=== PATIENT | female | born 1990 | race Caucasian/White ===

== ENCOUNTER 2021-04-21 12:22 | Emergency (ER) | payer OTHER, SELFPAY ==
[2021-04-21 12:37] VITALS: BP 121/71; PULSE 102; RESP 16; TEMP 36.9; O2SAT 98
--- NOTE | 2021-04-21 13:41 | ED.URI ---
HPI - URI/Sore Throat General Chief Complaint: Upper Respiratory Infection Stated Complaint: congestion fatigue and light headed Time Seen by Provider: 04/21/21 13:41 Source: patient, RN notes reviewed and old records reviewed Mode of arrival: ambulatory Limitations: no limitations History of Present Illness HPI Narrative: 30-year-old female who presents to [facility] with complaints of runny nose, nasal congestion, sneezing, sinus pressure, headache, sore throat since yesterday. She is 27 weeks has not taken anything [id number] for her symptoms is concerned that she may have Covid has not had Covid or flu vaccines. Patient is afebrile. MD elicited complaint: sore throat, rhinorrhea, nasal congestion, sinus pain and other (headache) Related Data Home Medications Medication Instructions Recorded Confirmed vit no.[id number] 1 tablet PO DAILY 04/21/21 04/21/21 [Classic ] Allergies Allergy/AdvReac Type Severity Reaction Status Date / Time No Known Allergies Allergy Unverified 04/21/21 13:25 Review of Systems Review of Systems: CONSTITUTIONAL: Denies fever, chills, or sweats. EYES: Denies visual changes, redness, or discharge. ENT: Positive rhinorrhea, congestion, sore throat, no otalgia. CARDIOVASCULAR: Denies chest pain, palpitations, or edema. RESPIRATORY: Denies cough or dyspnea. GASTROINTESTINAL: Denies abdominal pain, nausea, vomiting, or diarrhea. GENITOURINARY: Denies dysuria or hematuria. SKIN: Denies rash or itching. MUSCULOSKELETAL: Denies back pain, joint pain, or myalgia. NEUROLOGIC: Positive for headache,no numbness, or weakness. PSYCHIATRIC: Positive anxiety or depression. All systems reviewed & are unremarkable except as noted in HPI and below PMFSH Past Medical History Medical History (Updated 04/21/21 @ 13:54 by Jessica Lynne NP) Anxiety and depression Social History Social History (Updated 04/21/21 @ 22:56 by Jessica Lynne NP) Smoking status: Current every day smoker Tobacco type: cigarettes Alcohol intake: former Alcohol use details: is presently Substance use type: does not use Living arrangements: with family Gender identity (if verbalized by the patient): Female Exam Narrative: GENERAL: Well-appearing, well-nourished, and in no acute distress. HEAD: Normocephalic, atraumatic. EYES: PERRLA and EOMI. ENT: Nares patent, clear rhinorrhea no epistaxis. Mucous membranes moist.TM's normal with good light reflex, throat with mild erythema, no lesions or exudates, no tonsil swelling, NECK: Supple.no lymphadenopathy CHEST: Clear to auscultation. No respiratory distress.SAO2 98% on room air no cough noted. HEART: Regular rate and rhythm. No murmur heard. Normal peripheral pulses. ABDOMEN: Soft, nontender, nondistended, normal active bowel sounds. EXTREMITIES: Normal range of motion. No edema. SKIN: Warm, dry, no rash. NEURO: No focal deficits. Alert and oriented x3. Course Course Level of Care: Express Care Visit Vital Signs Vital signs: Vital Signs Temperature 36.9 C 04/21/21 12:37 Pulse Rate 102 H 04/21/21 12:37 Respiratory Rate 16 04/21/21 12:37 Blood Pressure 121/71 04/21/21 12:37 Pulse Oximetry 98 04/21/21 12:37 Temperature 36.9 C 04/21/21 12:37 Pulse Rate 102 H 04/21/21 12:37 Respiratory Rate 16 04/21/21 12:37 Blood Pressure 121/71 04/21/21 12:37 Pulse Oximetry 98 04/21/21 12:37 MDM - URI/Sore Throat Differential Diagnosis Differential diagnosis: Likely upper respiratory infection, sinusitis, viral infection, influenza and other (COVID screening) Medical Records Attestation: I reviewed the patient's medical records. Lab Data Attestation: I reviewed the patient's lab results. Lab results narrative: Strep screen negative, influenza A negative influenza B negative PCR Covid pending Labs: Lab Results 04/21/21 Range/Units 13:17 SARS-CoV-2 RNA (RT-PCR) Pending
[2021-04-22 16:39] LABS: SARS-CoV-2 RNA PCR Negative
== END 2021-04-21 14:00 | disposition home or self-care (01) ==
PROVIDERS: Emergency Provider Registered Nurse; PCP Physician Assistant
DX: O99.512 Diseases of the respiratory system complicating pregnancy, second trimester (principal); Z3A.27 27 weeks gestation of pregnancy; J06.9 Acute upper respiratory infection, unspecified; Z20.822 Contact with and (suspected) exposure to COVID-19; Z87.891 Personal history of nicotine dependence
CPT/HCPCS: 87081; 87804; 87880; 99203; C9803; G0463; U0003; U0005

== ENCOUNTER 2021-07-01 14:24 | Outpatient (RCR) | payer OTHER, SELFPAY ==
--- NOTE | ~2021-07-01 | US_ITS ---
EXAMINATION: US OB BPP wo non-stress DATE: 07/01/2021 15:52 INDICATION: tachycardia. TECHNIQUE: Real-time ultrasound of the pelvis was performed. COMPARISON: None. FINDINGS: There is a single living fetus in vertex presentation. The placenta is fundal. heart rate is 1 65 beats per minute (bpm). Biophysical profile performed by the technologist: breathing (30 sec sustained breathing in 30 minutes): 2 out of 2 movement (3 gross body movements in 30 minutes: 2 out of 2 tone (one episode of moyxgkp-perfpvnhv-jkscuci limb movement): 2 out of 2 Amniotic fluid pocket (2 cm): 2 out of 2 Total score: 8 out of 8 IMPRESSION: 1. Single living fetus in vertex presentation.] 2. Normal placenta. 3. Biophysical profile 8 out of 8. 4. RAYRAY 07/18/2021. Reviewed, dictated and finalized at location K.
[2021-07-01 16:03] VITALS: BP 104/69; PULSE 95
== END 2021-08-29 10:32 | disposition home or self-care (01) ==
LOC: ANHOBOP 14:24
PROVIDERS: PCP Physician Assistant; Visit Provider Advanced Practice Midwife
DX: O36.8330 Maternal care for abnormalities of the fetal heart rate or rhythm, third trimester, not applicable or unspecified (principal); Z3A.37 37 weeks gestation of pregnancy
CPT/HCPCS: 59025; 76819

== ENCOUNTER 2021-07-18 02:41 | Inpatient (IN) | payer OTHER, SELFPAY ==
[2021-07-18] VITALS (141 sets, daily range): BP systolic 61–152; BP diastolic 17–128; PULSE 60–236; RESP 13–18; TEMP 36.2–37.2; O2SAT 93–100; BMI 37.8
[2021-07-18 05:44] LABS: Basophils Absolute Auto 0.1 K/mm3 (0.0-0.1); Basophils Percent Auto 0.4 % (0.2-1.2); Hematocrit 36.9 % (37.0-47.0); Immature Granulocyte Percent A 0.6 % (0-0.5); Lymphocytes Absolute Auto 2.43 K/mm3 (0.9-3.2); Lymphocytes Percent Auto 15.2 % (18.3-44.2); Mean Corpuscular HGB Conc 32.5 g/dl (32-36); Mean Corpuscular Hemoglobin 29.8 pg (26-34); Mean Corpuscular Volume 91.6 fl (80-100); Mean Platelet Volume 11.8 fl (7.4-10.4); Monocytes Absolute Auto 1.2 K/mm3 (0.1-0.6); Monocytes Percent Auto 7.8 % (2.6-8.5); Neutrophils Absolute Auto 12.2 K/mm3 (1.3-6.7); Platelet Count Result 272 k/mm3 (150-375); Red Blood Count 4.03 M/mm3 (4.2-5.4); Red Cell Distribution Width 13.4 % (11.5-14.5)
[2021-07-18] MEDS: LACTATED RINGERS 1,000 ML 125 ML IV CONT ×2 (05:52→13:06)
--- NOTE | 2021-07-18 06:05 | WPDANESEPP ---
Anes - Eval Pre Procedure Procedure: labor epidural Date/Time: 07/18/21 06:05 Surgeon: oliver Pre Op Diagnosis: contractions Patient Data Age: 31 Gender: F Height: 1.73 m Weight: 113 kg Last Vital Signs Temp 36.2 C L 07/18/21 03:59 Pulse 81 07/18/21 06:01 BP 116/69 07/18/21 06:01 O2 Del Method Room Air 07/18/21 05:27 Allergies Allergy/AdvReac Type Severity Reaction Status Date / Time No Known Allergies Allergy Unverified 04/21/21 13:25 Home Medications Medication Instructions Recorded Confirmed Type vits no.126-ferrous fum 1 tablet PO DAILY 04/21/21 04/21/21 History 28 mg iron-folic acid 800 mcg tablet (Classic ) Laboratory Tests 07/18/21 07/18/21 05:38 05:38 WBC 16.0 K/mm3 H K/mm3 (4.5-10.0) RBC 4.03 M/mm3 L M/mm3 (4.2-5.4) Hgb 12.0 g/dL g/dL (12.0-15.0) Hct 36.9 % L % (37.0-47.0) MCV 91.6 fl fl (80-100) MCH 29.8 pg pg (26-34) MCHC 32.5 g/dl g/dl (32-36) RDW 13.4 % % (11.5-14.5) Plt Count 272 k/mm3 k/mm3 (150-375) MPV 11.8 fl H fl (7.4-10.4) Immature Gran % (Auto) 0.6 % H % (0-0.5) Neut % (Auto) 76.0 % H % (45.5-73.1) Lymph % (Auto) 15.2 % L % (18.3-44.2) [place] % (Auto) 7.8 % % (2.6-8.5) Eos % (Auto) 0.0 % % (0-4.4) Baso % (Auto) 0.4 % % (0.2-1.2) Lymph # (Auto) 2.43 K/mm3 K/mm3 (0.9-3.2) [place] # (Auto) 1.2 K/mm3 H K/mm3 (0.1-0.6) Eos # (Auto) 0.0 K/mm3 K/mm3 (0-0.3) Baso # (Auto) 0.1 K/mm3 K/mm3 (0.0-0.1) Abs Immat Gran (auto) 0.10 K/mm3 H K/mm3 (0.00-0.031) Absolute Neuts (auto) 12.2 K/mm3 H K/mm3 (1.3-6.7) Absolute Nucleated RBC 0.0 K/mm3 K/mm3 (0.0-0.012) Nucleated RBC % 0.0 % % (0.0-0.2) RPR Pending Patient hx anesthesia problems: none Family hx anesthesia problems: none Results Review: All pre-operative results and documents have been reviewed as part of the pre-operative evaluation. [facility] Past Medical History Medical History (Updated 04/22/21 @ 00:00 by Marlene Lewis) Anxiety and depression Family History Family History (Updated 07/08/21 @ 16:04 by Fabricio Holt RN) Father Cataract Asthma Emphysema lung Chronic obstructive pulmonary disease Diabetes mellitus Mother Edward's disease Cataract Hypertension Grandparent Acute myocardial infarction Grandparent Cancer Social History Social History (Updated 04/21/21 @ 22:56 by Jessica Lynne NP) Years smoked: 10 Smoking status: Current every day smoker Tobacco type: cigarettes Second hand tobacco smoke exposure: Yes Alcohol intake: former Alcohol use details: is presently Substance use: never Substance use type: does not use Gender identity (if verbalized by the patient): Female Spiritual care concerns: No Exam Day of Procedure 07/18/21 06:05
--- NOTE | 2021-07-18 13:16 | PM.IMHP ---
H&P: [facility] History of Present Illness Date/Time: 07/18/21 13:16 Chief Complaint: This patient is a 32-year-old 1 at 39 weeks gestation who presented in labor. She had agreed to delivery. She has a very large baby. She has a possibly macrosomic baby with a head in the 99th percentile and she has very severe anxiety. She denies any vaginal bleeding. Reports good movement. She denies any chest pain or shortness of breath. She understands that injuries may occur during surgery that result in hospitalization, more surgery, and severe illness. She understands risk of hemorrhage and infection. She has completed the informed consent process is ready to proceed with delivery. Review of Systems Review of Systems: All systems reviewed & are unremarkable except as noted in HPI and below Constitutional: Constitutional: Denies chills, Denies fatigue, Denies fever(s) and Denies weakness Eyes: Eyes: Denies blurry vision, Denies change in vision, Denies loss of peripheral vision, Denies loss of vision, Denies other visual disturbances and Denies eye pain ENT: Denies vertigo, Denies dizziness, Denies hearing loss, Denies mouth pain, Denies nasal obstruction, Denies neck mass and Denies neck pain Cardiovascular: Cardiovascular: Denies chest pain, Denies diaphoresis, Denies syncope, Denies leg edema and Denies dyspnea Respiratory: Respiratory: Denies chest congestion, Denies cough, Denies hemoptysis, Denies dyspnea and Denies wheezing Gastrointestinal: Gastrointestinal: Denies abdominal pain, Denies constipation, Denies diarrhea, Denies nausea and Denies vomiting Genitourinary: Genitourinary: Denies hematuria, Denies change in libido, Denies nocturia, Denies genital lesions, Denies flank pain and Denies urinary urgency Musculoskeletal: Musculoskeletal: Denies abnormal gait, Denies back pain, Denies myalgias, Denies arthralgias, Denies joint swelling, Denies muscle weakness and Denies neck pain Integumentary/Breasts: Skin/Breast: Denies swelling, Denies breast pain, Denies breast mass, Denies dry skin, Denies nipple discharge, Denies unusual bruising and Denies jaundice Neurologic: Denies Neuro-related abnormal movements, Denies Abnormal speech present, Denies abnormal gait, Denies behavioral changes, Denies confusion, Denies vertigo, Denies dizziness, Denies syncope, Denies loss of vision, Denies memory loss, Denies convulsions and Denies weakness Psychiatric: Psychiatric: Denies abnormal sleep pattern, Denies behavioral changes, Denies change in libido, Denies confusion, Denies depression, Denies anhedonia and Denies memory loss Endocrine: Endocrine: Reports no additional endocrine complaints, Denies change in libido and Denies fatigue Hematologic/Lymphatic: Hematologic/Lymphatic: Reports no additional hematologic/lymphatic complaints Allergic/Immunologic: Allergic/Immunologic: Reports no additional allergic/immunologic complaints and Denies wheezing PMFSH Past Medical History Medical History (Updated 07/18/21 @ 13:23 by Sheldon Morales MD) Anxiety and depression Family History Family History (Updated 07/08/21 @ 16:04 by Fabricio Holt RN) Father Cataract Asthma Emphysema lung Chronic obstructive pulmonary disease Diabetes mellitus Mother Edward's disease Cataract Hypertension Grandparent Acute myocardial infarction Grandparent Cancer Social History Social History (Updated 04/21/21 @ 22:56 by Jessica Lynne NP) Years smoked: 10 Smoking status: Current every day smoker Tobacco type: cigarettes Second hand tobacco smoke exposure: Yes Alcohol intake: former Alcohol use details: is presently Substance use: never Substance use type: does not use Gender identity (if verbalized by the patient): Female Spiritual care concerns: No Meds Home Medications and Allergies Home Medications Medication Instructions Recorded Confirmed Type vits no.
--- NOTE | 2021-07-18 14:10 | P.PNAN_ITS ---
Anes - Eval Final PreProcedure Day of Procedure 07/18/21 14:10 Patient weight: obese Heart: regular rate and rhythm Lungs: clear to auscultation Airway: Mallampati scale class II Neurological: alert and oriented Last oral intake: >/= 8 hours ASA classification: III Emergent: no Anesthetic plan: proceed Anesthesia type and monitoring: regional spinal and standard monitoring Results Review: All pre-operative results and documents have been reviewed as part of the pre- operative evaluation. Informed Consent: The patient's anesthetic plan and its attendant risks and benefits were discussed with the patient/family/POA. Questions were solicited and answers provided to the satisfaction of the patient/family/POA.
--- NOTE | 2021-07-18 14:33 | W.PM.PROC2 ---
Procedure Note - Detailed Date of Procedure 07/18/21 Pre-op Diagnosis contractions, macrosomia, labor, term gestation, severe anxiety Post-op Diagnosis Other Procedure Performed Low-transverse section Surgeon Sheldon Morales MD Anesthesia Spinal Indications macrosomia Findings Normal gestational maternal anatomy, average size , normal Apgars. Description of Procedure The patient was taken the operating room. She was prepped and draped in dorsal supine position with a leftward tilt. This was done after spinal anesthetic was applied. A low-transverse skin incision was made and carried down till of the fascia with the knife. The fascial incision was made with the knife. The fascial incision was extended laterally with Acevedo scissors. The fascia was tented upward superiorly and inferiorly the rectus muscles were dissected off bluntly. The rectus muscles were the midline. The preperitoneal fat and peritoneum were dissected open bluntly at the superior aspect of the rectus muscles. The peritoneal incision was extended superior and inferior with good position of bladder. The uterine incision was made with a scalpel down to the level of the amniotic cavity. The amniotic cavity was entered bluntly. The was delivered. The cord was clamped and cut and the infant was handed off to waiting pediatric staff. Cord bloods were obtained. The placenta was removed manually. The uterus was exteriorized. The uterus was cleared of all clots, debris and membranes. The uterus was closed in 0 Vicryl running lock fashion. An imbricating over a was placed along the incision line as well. The uterus was returned to the abdomen. The gutters were cleared of all clots and debris. The fascia was closed with 0 Vicryl running fashion. The subcutaneous tissue was irrigated pinpoint bleeders were cauterized. The skin was closed with subcuticular absorbable thu. The skin incision line was covered with glue. The patient tolerated the procedure well. She has taken recovery room in stable condition. Sponge lap and needle counts were correct x2. Complications No immediate complications Condition Stable Disposition PACU
[2021-07-18] MEDS: OXYTOCIN 30 UNITS/NS 500 ML 30 UNITS/500 ML BAG 125 UNITS IV CONT (15:33)
[2021-07-18] MEDS: ACETAMINOPHEN 325 MG TABLET 650 MG PO ×2 (17:58→23:53)
[2021-07-18] MEDS: DEXTROSE 5%/0.45% SOD CHL 1,000 ML 125 ML IV CONT (19:41)
[2021-07-18] MEDS: IBUPROFEN 600 MG TABLET PO (19:44)
[2021-07-19] VITALS: BP 104/50; PULSE 65; RESP 16; TEMP 36.8; O2SAT 99
[2021-07-19 04:00] VITALS: BP 101/58; PULSE 72; RESP 16; TEMP 36.7; O2SAT 98
[2021-07-19 04:43] LABS: Basophils Absolute Auto 0.1 K/mm3 (0.0-0.1); Basophils Percent Auto 0.3 % (0.2-1.2); Eosinophils Absolute Auto 0.2 K/mm3 (0-0.3); Eosinophils Percent Auto 1.1 % (0-4.4); Hematocrit 31.4 % (37.0-47.0); Hemoglobin 10.4 g/dL (12.0-15.0); Immature Granulocyte Absolute 0.07 K/mm3 (0.00-0.031); Immature Granulocyte Percent A 0.5 % (0-0.5); Lymphocytes Absolute Auto 1.61 K/mm3 (0.9-3.2); Lymphocytes Percent Auto 10.9 % (18.3-44.2); Mean Corpuscular HGB Conc 33.1 g/dl (32-36); Mean Corpuscular Hemoglobin 30.4 pg (26-34); Mean Corpuscular Volume 91.8 fl (80-100); Mean Platelet Volume 11.5 fl (7.4-10.4); Monocytes Absolute Auto 1.1 K/mm3 (0.1-0.6); Monocytes Percent Auto 7.6 % (2.6-8.5); Neutrophils Absolute Auto 11.7 K/mm3 (1.3-6.7); Neutrophils Percent Auto 79.6 % (45.5-73.1); Platelet Count Result 219 k/mm3 (150-375); Red Blood Count 3.42 M/mm3 (4.2-5.4); Red Cell Distribution Width 13.7 % (11.5-14.5); White Blood Count 14.8 K/mm3 (4.5-10.0)
[2021-07-19] MEDS: IBUPROFEN 600 MG TABLET PO ×4 (05:13→23:22)
[2021-07-19 07:40] VITALS: BP 119/86; PULSE 83; RESP 18; TEMP 36.2
[2021-07-19] MEDS: ACETAMINOPHEN 325 MG TABLET 650 MG PO ×3 (07:44→21:04)
[2021-07-19 12:10] VITALS: BP 106/57; PULSE 70; RESP 18; TEMP 36.2
--- NOTE | 2021-07-19 13:05 | PM.OBPNVD ---
OB - PN: Subj Subjective Date/time seen: 07/19/21 13:05 Patient comments: no complaints, pain well controlled, tolerating diet and flatus present OB - PN: Obj Data Labs CBC & Chem 7: 07/19/21 04:18 Labs: Laboratory Results - last 24 hr 07/19/21 04:18 WBC 14.8 H RBC 3.42 L Hgb 10.4 L Hct 31.4 L MCV 91.8 MCH 30.4 MCHC 33.1 RDW 13.7 Plt Count 219 MPV 11.5 H Immature Gran % (Auto) 0.5 Neut % (Auto) 79.6 H Lymph % (Auto) 10.9 L [place] % (Auto) 7.6 Eos % (Auto) 1.1 Baso % (Auto) 0.3 Lymph # (Auto) 1.61 [place] # (Auto) 1.1 H Eos # (Auto) 0.2 Baso # (Auto) 0.1 Abs Immat Gran (auto) 0.07 H Absolute Neuts (auto) 11.7 H Absolute Nucleated RBC 0.0 Nucleated RBC % 0.0 OB - PN A/P Plan day: 1 Comments: Post Op LTCS - no problems, routine recovery Time Spent With Patient Time: Total time spent is greater than 50% in coordination of care (as documented) at patient's floor/unit and/or counseling patient: Exam Const: General: cooperative, healthy appearing, comfortable and no acute distress Resp: Auscultation: no crackles, no rales, no rhonchi and no wheezes Cardio: Rhythm: regular rhythm Heart sounds: no click and no murmurs GI: Inspection: non-distended Auscultation: normal bowel sounds Extrem: General: normal to inspection, no pedal edema and no calf tenderness
[2021-07-19 19:00] VITALS: BP 117/79; PULSE 72; RESP 16; TEMP 37.2; O2SAT 99
[2021-07-19] MEDS: DOCUSATE SODIUM 100 MG CAPSULE PO (23:29)
[2021-07-20] MEDS: ACETAMINOPHEN 325 MG TABLET 650 MG PO ×3 (05:38→13:14)
[2021-07-20] MEDS: IBUPROFEN 600 MG TABLET PO ×2 (05:42→13:15)
[2021-07-20 06:27] LABS: Rapid Plasma Reagin Non-Reactive (NonReactive)
--- NOTE | 2021-07-20 09:15 | PM.OBPNVD ---
OB - PN: Subj Subjective Date/time seen: 07/20/21 09:15 SP day 2. complaints of intermittent incisional pain. Ambulating. desires to go home. OB - PN: Obj Data Labs CBC & Chem 7: 07/19/21 04:18 Labs: Laboratory Results - last 24 hr 07/18/21 05:38 RPR Non-reactive OB - PN A/P Plan day: 2 Plan: routine care and discharge home Time Spent With Patient Time: Total time spent is greater than 50% in coordination of care (as documented) at patient's floor/unit and/or counseling patient: Review of Systems Review of Systems: All systems reviewed & are unremarkable except as noted in HPI and below Exam Narrative: Incision clean dry and intact. Const: General: cooperative, healthy appearing and comfortable
[2021-07-20 09:20] VITALS: BP 127/74; PULSE 67; RESP 18; TEMP 36.9
--- NOTE | 2021-07-20 09:20 | WPDANLDNPN2 ---
Anes-Prog Note L&D-Neuraxial Date/Time: 07/20/21 09:20 Neuraxial medications: epidural PF morphine Patient feedback: Patient satisfied with post-operative pain management.
--- NOTE | 2021-07-20 09:20 | WPDANESPN ---
Anes - Prog Note Post-Op Date/Time: 07/20/21 09:20 Cardiovascular status: normal Respiratory status: normal Airway patency: baseline Mental status: baseline Post-Op hydration status: normal Vital Signs: Last Vital Signs Temp 37.2 C 07/19/21 19:00 Pulse 72 07/19/21 19:00 Resp 16 07/19/21 19:00 BP 117/79 07/19/21 19:00 Pulse Ox 99 07/19/21 19:00 O2 Del Method Room Air 07/19/21 19:00 Pain Score (VAS): 3 Laboratory Tests 07/19/21 04:18 07/18/21 05:38 RPR Non-reactive Patient Feedback: Patient satisfied with anesthetic care.
--- NOTE | 2021-07-20 09:21 | PM.OBDSVD ---
DS: Admitting Diagnosis Discharge Date 07/20/21 Admitting Diagnosis Labor OB - DS: Summary OB Procedures : None OB Procedures Intrapartum: OB Procedures: : None Peripartum Data Procedures: Procedures Operation Date: 07/18/21 13:40 Actual Procedure Side Surgeon p Section Not Applicable Sheldon Morales MD Time Spent with Patient Time attestation: Total time spent providing and/or coordinating discharge services: DS: Data Data Completed and Pending Labs on day of discharge: Labs from last 24 hours 07/18/21 05:38 RPR Non-reactive Discharge Plan Discharge Attending physician on discharge: Sheldon Morales Discharging Clinician: Krystle Colin Patient Disposition: Home, Self-Care Activity: pelvic rest Diet: regular Patient Instructions: Antibiotic Form Stand Alone Forms: General Discharge Information Follow-up/Referrals: Sheldon Morales MD [Physician] - 1 Week Discharge Medications: New oxycodone [Roxicodone] 5 mg tablet 5 mg PO Q6H PRN (Reason: pain) Qty: 10 0RF ibuprofen 800 mg tablet 800 mg PO Q6H PRN (Reason: pain) Qty: 20 0RF Continued Classic 28 mg iron- 800 mcg Tablet 1 tablet PO DAILY Date of admission: 07/18/21 02:41 Primary Care Provider: AnetaSatnam Admitting Provider: Sheldon Morales Attending physician on admission: Sheldon Morales Condition: Stable
[2021-07-20] MEDS: DOCUSATE SODIUM 100 MG CAPSULE PO (09:32)
--- NOTE | 2021-07-20 09:44 | PC.NURSE ---
Pt changed her mind and has decided to not take the Tdap vaccine during this hospitalization.
--- NOTE | 2021-07-20 11:12 | PC.NURSE ---
0955 - 1100 Introductions were made, then consulted with patient to assess needs related to . is latched to the left breast using cradle positioning with dimpling and clicking noises with suck. Mother led the conversation with her experience feeding her infant so far, choice to supplement last night, experience taking care of other babies, cluster feeding infant last night. Mother works well with her infant with encouragement, education, and detaching from the breast for a optimal latch. At times mother is distracted with pain and is encouraged to take something for pain when needed. Encouraged understanding of the benefits of skin to skin (unwrapping and placing vertically on her chest), responsive feeding and how to watch for early feeding signs, frequency of feeding on demand about every 8-12 times in 24 hours (every 2-3 hours), milk production, duration of feeding, signs of adequate intake/output and how to record on the feeding sheet. Reviewed positioning and ear, shoulder, hip alignment, supporting the breast, asymmetrical latch (off-center), and leading with the chin with a big open side gape. Infant latched optimally to the left breast in football position. Education given to mother of how to visualize suck/swallow ratios and drinking at the breast. Mother voiced understanding the difference between non-nutritive sucking and nutritive drinking at the breast. was able to maintain latch without discomfort to mother. After infant repositioned and was detached from breast. Mother is encouraged a few times to keep infant close to the breast with good support of optimal position and latch. Nipple care reviewed with optimal latch and good positioning. Reviewed good handwashing when or touching the breast/nipples to prevent infection. Resources used to facilitate learning were used with the visual handouts/mom and baby guide. Mother voiced understanding of responsive feedings, stimulating with skin to skin, hand expressed colostrum, touch, talking to infant to encourage if it has been 2 -3 hours since the start of the last , to call if infant does not latch or there is discomfort with . Breast pump provided prior to shift. Instructions given on cleaning, care, usage, there should be no pain, pumping schedule for milk production, collection, and storage of human milk. Parents are encouraged to record pumping schedule on the feeding sheet. Reported to the primary RN.
[2021-07-21 09:27] VITALS: BP 130/74; PULSE 77; RESP 20; TEMP 37.2; O2SAT 99
== END 2021-07-20 16:10 | disposition home or self-care (01) | DRG 540 ==
LOC: ANHLDR 05:43 → ANHOB2 16:57
PROVIDERS: Admitting Provider Obstetrics & Gynecology; PCP Physician Assistant; Referring Provider Advanced Practice Midwife; Visit Provider Obstetrics & Gynecology
PROC: 10D00Z1 Extraction of Products of Conception, Low, Open Approach (ICD-10-PCS; CPT 59514; principal; 2021-07-18 13:40)
DX: O36.63X0 Maternal care for excessive fetal growth, third trimester, not applicable or unspecified (principal); Z37.0 Single live birth; Z3A.40 40 weeks gestation of pregnancy; O77.0 Labor and delivery complicated by meconium in amniotic fluid; O99.344 Other mental disorders complicating childbirth; F41.9 Anxiety disorder, unspecified
CPT/HCPCS: 36415; 84112; 85025; 86592; 86850; 86900; 86901; A9270; J2274; J2405; J2590; J2795; J7120

== ENCOUNTER 2021-07-23 20:44 | Outpatient (CLI) | payer OTHER, SELFPAY ==
[2021-07-23] VITALS (14 sets, daily range): BP systolic 122–132; BP diastolic 65–73; PULSE 60–84; O2SAT 97–100
[2021-07-23 21:20] LABS: Basophils Absolute Auto 0.1 K/mm3 (0.0-0.1); Basophils Percent Auto 0.6 % (0.2-1.2); Eosinophils Absolute Auto 0.7 K/mm3 (0-0.3); Eosinophils Percent Auto 6.5 % (0-4.4); Hematocrit 34.7 % (37.0-47.0); Hemoglobin 11.3 g/dL (12.0-15.0); Immature Granulocyte Absolute 0.07 K/mm3 (0.00-0.031); Immature Granulocyte Percent A 0.6 % (0-0.5); Lymphocytes Absolute Auto 2.85 K/mm3 (0.9-3.2); Lymphocytes Percent Auto 25.2 % (18.3-44.2); Mean Corpuscular HGB Conc 32.6 g/dl (32-36); Mean Corpuscular Hemoglobin 29.7 pg (26-34); Mean Corpuscular Volume 91.3 fl (80-100); Monocytes Absolute Auto 0.6 K/mm3 (0.1-0.6); Monocytes Percent Auto 5.2 % (2.6-8.5); Neutrophils Percent Auto 61.9 % (45.5-73.1); Platelet Count Result 400 k/mm3 (150-375); Red Cell Distribution Width 13.5 % (11.5-14.5); White Blood Count 11.3 K/mm3 (4.5-10.0)
[2021-07-23 21:32] LABS: Alanine Aminotransferase 31 U/L (6-35); Albumin Level 3.6 g/dL (3.5-5.1); Alkaline Phosphatase 150 U/L (38-126); Anion Gap 5 mmol/L (8-16); Aspartate Amino Transferase 29 U/L (14-36); Bilirubin,Total 0.2 mg/dL (0.2-1.3); Blood Urea Nitrogen 14 mg/dL (7-17); Calcium 8.5 mg/dL (8.4-10.2); Carbon Dioxide 24 mmol/L (22-30); Chloride 108 mmol/L (98-107); Estimated Glomerular Filt Rate > 60; Glucose 88 mg/dL (65-110); Potassium 3.6 mmol/L (3.4-5.0); Sodium 137 mmol/L (137-145); Uric Acid 4.1 mg/dL (2.5-7.5)
--- NOTE | 2021-07-23 21:50 | PC.NURSE ---
0978- SPoke with Dr. Morales, labs and BP's reveiwed. Orders to discharge to home with follow up in office tomorrow.
== END 2021-07-23 21:53 | disposition home or self-care (01) ==
LOC: ANHOBOP 20:49 → ANHOBPP 07-29 06:21
PROVIDERS: PCP Physician Assistant; Visit Provider Obstetrics & Gynecology
DX: O13.5 Gestational [pregnancy-induced] hypertension without significant proteinuria, complicating the puerperium (principal)
CPT/HCPCS: 36415; 80053; 84550; 85025; 99199

== ENCOUNTER 2021-11-11 02:12 | Day surgery (SDC) | payer OTHER, SELFPAY ==
--- NOTE | 2021-11-04 09:49 | PC.NURSE ---
Report to the Outpatient Waiting Room, entrance under the green pavilion located off [facility], at time __09:00AM__ on date __[birth year] . OR Time: ___11:00AM___. Time changes happen often and if your time is changed the preop area will call you the afternoon before. - You and your visitor will be asked to self-screen and do not enter if you have any COVID symptoms. - Only one visitor and NO children visitors are allowed at this time. - The patient visitor is requested to leave or wait in car when not with patient due to restrictions. - A mask is required within the hospital. Patients may have clear liquids (water, carbonated beverages, clear teas, apple juice) until 3 hours prior to surgery with a maximum of 20 ounces. - No food from midnight until time of surgery - NOTHING TO DRINK 08:00AM Take the following medications with a SIP of water the morning of surgery: N/A Medications to discontinue per physician N/A Date to take last dose N/A Please no make-up, nail amharic, hairspray, perfume, deodorant, or body powder the day of surgery. No jewelry (including any body piercings) or valuables the day of surgery, leave them at home. Please take a shower or bath the night before, or the morning of, surgery with an antibacterial soap. Wear comfortable, loose fitting clothing. - Jewelry must be removed prior to entering the operating room. Rings and piercings that are not removed may be cut off. - The hospital will not accept responsibility for valuables. - Please leave all valuables, including medications, at home the day of surgery. If you are going home after surgery, a licensed parts delivery driver must drive you home. - NO public transportation without another adult. - We recommend that an adult stay with you for 24 hours following discharge. - We also recommend that you do not drive, make important decision, drink alcoholic beverages, or take any drugs that were not prescribed by your health care provider for at least 24 hours after your discharge time. Follow any additional instructions given to you from your surgeon. If you or anyone in your household have experienced Covid symptoms in the past week, please notify your surgeon or the nurse liaison at the phone number below for possible testing. Telephone instructions given to __PATIENT__and asked if any additional questions and then verbalized understanding. Patient advised to call surgeon office or pre surgery nurse liaison [phone] if any additional questions.
--- NOTE | 2021-11-10 11:57 | P.PNAN_ITS ---
Anes - Initial Pre Proc Eval Procedure: Operation Date: 11/11/21 11:00 Proposed Procedures p Loop Electrical Excision Procedure - Sheldon Morales MD Date/Time: 11/10/21 11:57 Surgeon: Sheldon Morales MD Pre Op Diagnosis: Dysplasia of Cervix Patient Data Age: 31 Gender: F Height: Weight: Allergies Allergy/AdvReac Type Severity Reaction Status Date / Time No Known Allergies Allergy Unverified 11/11/21 09:42 Home Medications Medication Instructions Recorded Confirmed Type No Home Medications 11/04/21 11/04/21 History Patient hx anesthesia problems: none Family hx anesthesia problems: none Results Review: All pre-operative results and documents have been reviewed as part of the pre- operative evaluation. PMFSH Past Medical History Medical History Anxiety Anxiety and depression Chronic GERD Depression Smoker Family History Family History (System 11/10/21 @ 14:10 by Brenda Ren) Father Cataract Asthma Emphysema lung Chronic obstructive pulmonary disease Diabetes mellitus Mother Edward's disease Cataract Hypertension Grandparent Acute myocardial infarction Grandparent Cancer Social History Social History (System 11/10/21 @ 14:10 by Brenda Ren) Smoking packs per day: 0.5 Smoking cigarettes per day: 10.0 Years smoked: 10 Smoking pack-years: 5.00 Smoking status: Current every day smoker Tobacco type: cigarettes Second hand tobacco smoke exposure: No Alcohol intake: never Alcohol use details: is presently Substance use: never Substance use type: does not use Living arrangements: with family Gender identity (if verbalized by the patient): Female Spiritual care concerns: No Anes - Eval Final PreProcedure Day of Procedure 11/10/21 11:57 Patient weight: overweight Heart: regular rate and rhythm Lungs: clear to auscultation and normal air movement Airway: Mallampati scale class II Neurological: alert and oriented Last oral intake: >/= 8 hours ASA classification: II Emergent: no Anesthetic plan: proceed Anesthesia type and monitoring: general GIVS Results Review: All pre-operative results and documents have been reviewed as part of the pre- operative evaluation. Informed Consent: The patient's anesthetic plan and its attendant risks and benefits were discussed with the patient/family/POA. Questions were solicited and answers provided to the satisfaction of the patient/family/POA.
--- NOTE | 2021-11-11 08:22 | SUR.PREOP ---
This RN called patient to come in earlier due to surgeon working ahead. Left message on cell at [phone] and [phone].
[2021-11-11 09:29] VITALS: BP 113/71; PULSE 93; RESP 16; TEMP 36.3; O2SAT 99; BMI 31.8
[2021-11-11] MEDS: ACETAMINOPHEN 500 MG TABLET 1000 MG PO (09:49)
[2021-11-11] MEDS: LACTATED RINGERS 1,000 ML 30 ML IV CONT (09:54)
--- NOTE | 2021-11-11 10:09 | WPDHPUPDATE1 ---
History and Physical Update Update Date/Time: 11/11/21 10:09 History and Physical has been reviewed, including an updated exam of the patient. There are NO changes in the patient's condition. Risks, benefits, and alternatives have been discussed and questions answered. Patient agrees to proceed with procedure.
--- NOTE | 2021-11-11 10:10 | PM.IMHP ---
H&P: HPI History of Present Illness Date/Time: 11/11/21 10:10 Chief Complaint: Cervical dysplasia Narrative: This patient is a 31-year-old female with cervical dysplasia. We have agreed to perform LEEP procedure in the hospital. She understands that injuries may occur that result in hospitalization, more surgery, severe illness. She understands these are risk of hemorrhage and infection. She denies any chest pain or shortness of breath. She denies any nausea, vomiting, fever, chills. Review of Systems Review of Systems: All systems reviewed & are unremarkable except as noted in HPI and below Constitutional: Constitutional: Denies chills, Denies fatigue, Denies fever(s) and Denies weakness Eyes: Eyes: Denies blurry vision, Denies change in vision, Denies loss of peripheral vision, Denies loss of vision, Denies other visual disturbances and Denies eye pain ENT: Denies vertigo, Denies dizziness, Denies hearing loss, Denies mouth pain, Denies nasal obstruction, Denies neck mass and Denies neck pain Cardiovascular: Cardiovascular: Denies chest pain, Denies diaphoresis, Denies syncope, Denies leg edema and Denies dyspnea Respiratory: Respiratory: Denies chest congestion, Denies cough, Denies hemoptysis, Denies dyspnea and Denies wheezing Gastrointestinal: Gastrointestinal: Denies abdominal pain, Denies constipation, Denies diarrhea, Denies nausea and Denies vomiting Genitourinary: Genitourinary: Denies hematuria, Denies change in libido, Denies nocturia, Denies genital lesions, Denies flank pain and Denies urinary urgency Musculoskeletal: Musculoskeletal: Denies abnormal gait, Denies back pain, Denies myalgias, Denies arthralgias, Denies joint swelling, Denies muscle weakness and Denies neck pain Integumentary/Breasts: Skin/Breast: Denies swelling, Denies breast pain, Denies breast mass, Denies dry skin, Denies nipple discharge, Denies unusual bruising and Denies jaundice Neurologic: Denies Neuro-related abnormal movements, Denies Abnormal speech present, Denies abnormal gait, Denies behavioral changes, Denies confusion, Denies vertigo, Denies dizziness, Denies syncope, Denies loss of vision, Denies memory loss, Denies convulsions and Denies weakness Psychiatric: Psychiatric: Denies abnormal sleep pattern, Denies behavioral changes, Denies change in libido, Denies confusion, Denies depression, Denies anhedonia and Denies memory loss Endocrine: Endocrine: Reports no additional endocrine complaints, Denies change in libido and Denies fatigue Hematologic/Lymphatic: Hematologic/Lymphatic: Reports no additional hematologic/lymphatic complaints Allergic/Immunologic: Allergic/Immunologic: Reports no additional allergic/immunologic complaints and Denies wheezing PMFSH Past Medical History Medical History Anxiety Anxiety and depression Chronic GERD Depression Smoker Family History Family History (System 11/10/21 @ 14:10 by Brenda Ren) Father Cataract Asthma Emphysema lung Chronic obstructive pulmonary disease Diabetes mellitus Mother Edward's disease Cataract Hypertension Grandparent Acute myocardial infarction Grandparent Cancer Social History Social History (System 11/10/21 @ 14:10 by Brenda Ren) Smoking packs per day: 0.5 Smoking cigarettes per day: 10.0 Years smoked: 10 Smoking pack-years: 5.00 Smoking status: Current every day smoker Tobacco type: cigarettes Second hand tobacco smoke exposure: No Alcohol intake: never Alcohol use details: is presently Substance use: never Substance use type: does not use Living arrangements: with family Gender identity (if verbalized by the patient): Female Spiritual care concerns: No Meds Home Medications and Allergies Home Medications Medication Instructions Recorded Confirmed Type No Home Medications 11/04/21 11/11/21 History Allergies Allergy/AdvReac Type Severity Reaction Status Date / Time
[2021-11-11] MEDS: LIDO 1%/EPINEPHRINE 1:100,000 20 ML VIAL 10 ML INFILTRATE (10:36)
[2021-11-11] MEDS: IODINE/POTASSIUM IODIDE 8 ML SOLUTION 2 ML TOPICAL (10:37)
[2021-11-11 10:51] VITALS: BP 100/55; PULSE 65; RESP 15; O2SAT 98
--- NOTE | 2021-11-11 11:08 | W.PM.PROC2 ---
Procedure Note - Detailed Date of Procedure 11/11/21 Pre-op Diagnosis Dysplasia of Cervix Post-op Diagnosis Same Procedure Performed LEEP Surgeon Sheldon Morales MD Anesthesia MAC Indications Cervical cancer prevention Findings normal appearing cervix, grossly Description of Procedure the patient was taken to the operating room. She was prepped and draped in the dorsal lithotomy position after induction of MAC anesthesia. A coated speculum was placed in the vagina. The cervix was injected at 3 and 9:00 a.m. with lidocaine. A electrode loop was used to excise the central portion of the cervix in 1 motion. This was from 9:00 to 3:00. After excision of that tissue the cut surface was cauterized with ball cautery. The Monsel solution was applied to the cut surfaces well. The speculum was removed. The patient tolerated the procedure well. She was seeing cover stable condition. Estimated Blood Loss -5.0 Packing No Pathology Yes Complications No immediate complications Condition Stable Disposition Same day
[2021-11-11 11:20] VITALS: BP 81/58; PULSE 60; RESP 16
[2021-11-11 11:50] VITALS: BP 107/65; PULSE 63; RESP 16
[2021-11-11] MEDS: KETOROLAC 30 MG/ML VIAL (*BKC) IV PUSH (12:04)
== END 2021-11-11 12:15 | disposition home or self-care (01) ==
PROVIDERS: Visit Provider Obstetrics & Gynecology
PROC: 0UBC7ZZ Excision of Cervix, Via Natural or Artificial Opening (ICD-10-PCS; CPT 57522; principal; 2021-11-11 11:00)
DX: D06.1 Carcinoma in situ of exocervix (principal); F17.210 Nicotine dependence, cigarettes, uncomplicated
CPT/HCPCS: 57522; 88307; A9270; J1885; J2250; J2405; J2704; J3010; J7120

== ENCOUNTER 2023-08-02 17:34 | Emergency (ER) | payer SELFPAY ==
[2023-08-02 17:50] VITALS: BP 124/78; PULSE 91; RESP 20; TEMP 37; O2SAT 100
--- NOTE | 2023-08-08 22:07 | ED.GENADULT ---
HPI - General Adult General Chief complaint: Skin/Abscess/Foreign Body Stated complaint: right forearm bite Time Seen by Provider: 08/02/23 18:24 Source: patient, RN notes reviewed and old records reviewed Mode of arrival: ambulatory Limitations: no limitations History of Present Illness HPI narrative: 33-year-old [facility] complaint what she believes to be a brown recluse spider to her right dorsal forearm for 4-5 days. Patient reports seeing brown recluse spider in her home. Patient has been treating area with Neosporin and keeping it covered with a large Band-Aid. Patient states area has now become blistered, tender, swollen and red. Patient denies allergies, fever, cough, shortness of breath, chest pain, body aches, headache, Pertinent medical history. Patient in no acute distress. Related Data Home Medications Medication Instructions Recorded Confirmed No Home Medications 11/04/21 11/11/21 Allergies Allergy/AdvReac Type Severity Reaction Status Date / Time No Known Allergies Allergy Unverified 11/11/21 09:42 Review of Systems Review of Systems: All systems reviewed & are unremarkable except as noted in HPI and below Constitutional: Constitutional: Reports no additional constitutional complaints Eyes: Eyes: Reports no additional eye complaints ENT: Reports system reviewed and no additional complaints, except as documented Cardiovascular: Cardiovascular: Reports no additional cardiovascular complaints, Denies chest pain and Denies dyspnea Respiratory: Respiratory: Reports no additional respiratory complaints, Denies cough and Denies dyspnea Musculoskeletal: Musculoskeletal: Reports no additional musculoskeletal complaints Integumentary/Breasts: Skin/Breast: Reports wounds ( Right dorsal forearm) Neurologic: Reports system reviewed and no additional complaints, except as documented Psychiatric: Psychiatric: Reports no additional psychiatric complaints [facility] Past Medical History Medical History Anxiety Anxiety and depression Chronic GERD Depression Smoker Family History Family History Father Cataract Asthma Emphysema lung Chronic obstructive pulmonary disease Diabetes mellitus Mother Edward's disease Cataract Hypertension Grandparent Acute myocardial infarction Grandparent Cancer Social History Social History Smoking packs per day: 0.5 Smoking cigarettes per day: 10.0 Years smoked: 10 Smoking pack-years: 5.00 Smoking status: Current every day smoker Tobacco type: cigarettes Second hand tobacco smoke exposure: No Alcohol intake: never Alcohol use details: is presently Substance use: never Substance use type: does not use Living arrangements: with family Gender identity (if verbalized by the patient): Female Spiritual care concerns: No Comments At the time of my signature, I reviewed and agree with the nursing past medical, surgical, social, and family history. There is no relevant family history pertinent to the patient complaint. Exam Const: General: cooperative, healthy appearing, comfortable, no acute distress, alert and well nourished Nutritional Appearance: well nourished Orientation/consciousness: patient oriented x3 Limitations: no limitations HENMT: Head: normal to inspection Ears: external ears normal Face/Nose/Sinus: Normal external nose present, Normal nares present, normal facial exam, No erythema and No edema Face and sinus: normal facial exam, no erythema and no edema Mouth: Yes Normal oral and palatal mucosa present Eyes: General: appearance normal, both eyes and all related structures Neck: Neck: normal visual inspection, full ROM and no meningeal signs Lymphatic: no lymphadenopathy noted and no lymphedema noted Chest: Chest palpation & inspection: normal inspe
== END 2023-08-02 19:26 | disposition home or self-care (01) ==
PROVIDERS: Emergency Provider Nurse Practitioner Family; PCP Physician Assistant
DX: T63.331A Toxic effect of venom of brown recluse spider, accidental (unintentional), initial encounter (principal); F17.210 Nicotine dependence, cigarettes, uncomplicated; K21.9 Gastro-esophageal reflux disease without esophagitis
CPT/HCPCS: 99211; G0463